=== PATIENT | female | born 1970 | race Two or more races ===

== ENCOUNTER 2019-10-13 13:01 | Emergency (ER) | payer OTHER ==
[~2019-10-13] VITALS: Ht 167.6 cm; Wt 85.3 kg
--- NOTE | 2019-10-13 13:25 | NUR ---
BIBS TO ER BED 12. AAOX4. NOT IN RESP DISTRESS. AMBULATORY. CAME IN FOR A HEAD INJURY THAT HAPPENED AT WORK. PER PT, SHE HAS GETTING A BAG OF FROZEN RICE WHEN ANOTHER BAG OF FROZEN RICE ON TOP OF THE ONE SHE IS GETTING FELL ON HER HEAD. PT DENIED KO. C/P PAIN 10/03. NOTED REDNESS ON FOREHEAD. NEURO DEFICIT NOTED. TESSA. WAS AT BEDSIDE FOR EVAL. ORDERS RECEIVED, NOTED AND CARRIED OUT.
--- NOTE | 2019-10-13 13:29 | NUR ---
PT TO CT ON [place]
[2019-10-13] MEDS ORDERED: ACETAMINOPHEN ES 500 MG TABLET ONE (13:45)
[2019-10-13] MEDS ORDERED: ACETAMINOPHEN ES 500 MG TABLET PO ONE (14:00)
--- NOTE | 2019-10-13 14:02 | NUR ---
Patient discharged to home in stable condition. Written and verbal after care instructions given. Patient verbalizes understanding of instruction. Pt ambulatory with a steady gait
[2019-10-13 14:03] VITALS: BP 121/82
== END 2019-10-13 14:03 | disposition home or self-care (01) ==
LOC: ER 13:07
DX: S06.0X0A Concussion without loss of consciousness, initial encounter (principal); S00.03XA Contusion of scalp, initial encounter; S09.8XXA Other specified injuries of head, initial encounter; R42 Dizziness and giddiness; R51 Headache; W18.39XA Other fall on same level, initial encounter; Y93.89 Activity, other specified; Y92.89 Other specified places as the place of occurrence of the external cause; Y99.0 Civilian activity done for income or pay
CPT/HCPCS: 70450-TC